=== PATIENT | female | born 1935 | race Two or more races ===

== ENCOUNTER 2016-09-19 12:20 | Day surgery (SDC) | payer MEDICARE, OTHER ==
[2016-09-17 11:00] LABS: HEMATOCRIT 35.6 % (36.0-48.0)
[2016-09-17 11:20] LABS: BUN (BLOOD UREA NITROGEN) 11 MG/DL (6-23); CALCIUM, SERUM 9.4 MG/DL (8.5-10.4); CHLORIDE, SERUM 102 MMOL/L (96-112); CO2 (CARBON DIOXIDE) 31 MMOL/L (24-34); CREATININE 0.83 MG/DL (0.55-1.02); GFR AFRICAN AMERICAN 76 ML/MIN (>=60); GFR NON AFRICAN AMERICAN 65 ML/MIN (>=60); GLUCOSE, SERUM 192 MG/DL (60-99); POTASSIUM, SERUM 4.1 MMOL/L (3.5-5.3); SODIUM, SERUM 138 MMOL/L (135-148)
--- NOTE | ~2016-09-19 | OP ---
Record Of Operation [facility] [address] [place]. [address] NAME: ANA CERNA : 31 STATUS : [facility]#: [id number] AGE: 81 ADM/REG DATE : 09/19/16 MR#: [id number] REPORT SERV DATE: 09/19/16 DICTATED BY: SANDEEP NUGENT DATE: 09/19/16 REPORT STATUS : Draft TRANSCRIBED BY: MODL DATE: 09/19/16 DATE OF PROCEDURE: 09/19/2016 PREOPERATIVE DIAGNOSIS: Skin mass, submental skin. POSTOPERATIVE DIAGNOSIS: Skin mass, submental skin. PROCEDURE: Wide local excision of a local skin lesion, probably benign. INDICATIONS: Ana Cerna is an 81-year-old female with a history of having a submental skin abscess that persisted for months in spite of more than 30 days of what would otherwise have been effective antibiotic therapy. Even when I saw her back on her last visit, there was a suspicious large abscess-like remnant and that was a concerning. I was concerned that this could be an infected thyroglossal duct cyst, due to its position immediately in front of the hyoid bone, or a malignancy. I counseled her about the risks, benefits, and alternatives of this procedure. The risks include, but are not limited to pain, bleeding, infection, scarring, and recurrence. Her relatives were in the room when we talked. Her Bulgarian skills are good, but not excellent, so I also gave the family an opportunity to ask questions and clarify any points. She did sign a consent form. PROCEDURE IN DETAIL: Ana Cerna was brought to the operating room and positioned on the table in supine manner. General endotracheal anesthesia was induced. The patient was prepped and draped in the usual fashion. An elliptical excision was designed within relaxed skin tension lines and marked with a marking pen. This was incised with the 15 blade and once we had the skin incision entirely incised, a combination of blunt and sharp dissection were utilized to free up the skin in its subcutaneous nodule from surrounding tissues, with a decent margin. Hemostasis was obtained with the unipolar and bipolar electrocautery. Following this, the wound was thoroughly irrigated with copious amounts of saline. No residual mass was seen. 4-0 Vicryl was utilized to close the skin and the subcutaneous layer, and 5-0 Prolene on the skin as well. The wound was dressed with half-inch Steri- Strips and a dressing sponge. She was returned to anesthesia control and extubated in the operating room and then moved to the recovery room in good condition. FINDINGS: 1. Estimated blood loss, 10 mL. 2. Total fluids given, 400 mL of Ringer's lactate. 3. Residual skin abscess. This did not suggest a thyroglossal duct cyst and there was no direct cyst-like component and no connection between the hyoid bone and the mass itself. HENRY/ALFRED Sandeep Nugent M.D. Record Of Operation [address] [address] NAME: ANA CERNA : 31 STATUS : [facility]#: [id number] AGE: 81 ADM/REG DATE : 09/19/16 MR#: [id number] REPORT SERV DATE: 09/19/16 DICTATED BY: SANDEEP NUGENT DATE: 09/19/16 REPORT STATUS : Draft TRANSCRIBED BY: ALFRED DATE: 09/19/16 / [id number] CC: Saul Koroma M.D.
[~2016-09-19 12:20] MED LIST: GLUCPH PO; MULTIPLE VITS PO; NORV25 PO; NORV5 PO
== END 2016-09-19 18:15 | disposition home or self-care (01) ==
LOC: SDC 12:20
PROVIDERS: Otolaryngology
PROC: 0JB40ZZ Excision of Right Neck Subcutaneous Tissue and Fascia, Open Approach (ICD-10-PCS; 2016-09-19)
PROC: 0JQ40ZZ Repair Right Neck Subcutaneous Tissue and Fascia, Open Approach (ICD-10-PCS; principal; 2016-09-19 14:00)
DX: L08.9 Local infection of the skin and subcutaneous tissue, unspecified (principal); E04.1 Nontoxic single thyroid nodule; I10 Essential (primary) hypertension; E11.9 Type 2 diabetes mellitus without complications
CPT/HCPCS: 80048; 82962; 85014; 85018; 88305; 93005; A9270-GY; J0690; J2250; J2710; J3010